=== PATIENT | female | born 1970 | race Caucasian/White ===

== ENCOUNTER 2016-08-21 05:13 | Emergency (ER) | payer OTHER ==
[~2016-08-21] VITALS: Ht 160 cm; Wt 67.6 kg
[~2016-08-21 05:13] MED LIST: ANTIVERT 25 MG25 MG PO; KETOROLAC TROME10 M1 PO
--- NOTE | 2016-08-21 05:31 | ED UPPER/LOWER EXTREMITY COMPL ---
History of Present Illness General Chief Complaint: Hand or Wrist Injury Stated Complaint: LT FOREARM INJ WHILE PULLING PT UP IN BED AT WORK Source: patient Exam Limitations: no limitations Vital Signs & Intake/Output Vital Signs & Intake/Output Vital Signs Date Time Temp Pulse Resp B/P Pulse O2 O2 Flow FiO2 Ox Delivery Rate 08/21 0626 96.5 08/21 0550 Room Air 08/21 0541 96.5 75 18 128/72 98 Room Air Allergies Coded Allergies: NO KNOWN ALLERGIES (11/14/12) Reconcile Medications Ibuprofen 600 MG TABLET 1 TAB PO TID PRN pain with food Triage Nurses Notes Reviewed? yes Onset: Abrupt Duration: hour(s): Timing: single episode today Severity: mild Pain/Injury Location: Left: Wrist. Method of Injury: "I was pulling a patient on one north." Modifying Factors: Improves With: rest. Worsens With: movement. Associated Symptoms: "Looks like its swollen on the wrist" HPI: 46 yo woman in prior good health, presents with left wrist pain after pulling a patient on the bed. She notes that she pulled a sheet and then felt pain in her left wrist, worse with movement. She is otherwise well. Past History Medical History Any Pertinent Medical History? see below for history Neurological: NONE EENT: NONE Cardiovascular: VERTIGO Respiratory: NONE Gastrointestinal: NONE Hepatic: NONE Renal: NONE Musculoskeletal: NONE Psychiatric: NONE Endocrine: NONE Blood Disorders: NONE Cancer(s): NONE Surgical History Surgical History: non-contributory Psychosocial History What is your primary language Cymro Family History Hx Contributory? No Review of Systems Review of Systems Constitutional: Reports: no symptoms. EENTM: Reports: no symptoms. Respiratory: Reports: no symptoms. Cardiovascular: Reports: no symptoms. Gastrointestinal/Abdominal: Reports: no symptoms. Genitourinary: Reports: no symptoms. Musculoskeletal: Reports: no symptoms. Skin: Reports: no symptoms. Neurological/Psychological: Reports: no symptoms. Hematologic/Endocrine: Reports: no symptoms. Immunological: Reports: no symptoms. All Other Systems: Reviewed and Negative Physical Exam Physical Exam General Appearance: well developed/nourished, mild distress Head: atraumatic Eyes: Bilateral: normal appearance. Ears, Nose, Throat: normal pharynx, normal ENT inspection, hearing grossly normal Neck: normal inspection, supple Cardiovascular/Respiratory: regular rate/rhythm Back: normal inspection Hand Left: no focal bony tenderness in hand or wrist. Pain elicited with passive extension of wrist and dequervain's maneuver. minimal swelling noted. Skin: intact, normal color, warm/dry Lymphatic: no anterior cervical ethel Progress Differential Diagnosis: contusion, sprain, tendon injury Plan of Care: Orders Procedure Date/time Status Durable Medical Equipment 08/21 613 Active Diagnostic Imaging: Viewed by Me: Radiology Read. Discussed w/RAD: Radiology Read. Radiology Impression: RIGHT WRIST... NEG.. FULL REPORT BELOW. Comments: PATIENT: KISHAN BUCKNER PRESENT AGE: 46 PATIENT ACCOUNT NO: [id number] : 66 LOCATION: [facility] ORDERING PHYSICIAN: DARLINE LINDO MD SERVICE DATE: 08/21/16 EXAM TYPE: RAD - XRY-WRIST COMPLETE-LEFT EXAMINATION: XR WRIST, LEFT CLINICAL INFORMATION: Pain status post boosting in patient. Rule out fracture. COMPARISON: 07/25/2009 TECHNIQUE: AP, lateral, scaphoid, and oblique views of the left wrist FINDINGS: No fracture or malalignment. Bone mineralization is normal. Joint spaces are well-preserved. Scaphoid bone is intact. Incidental note is made of a carpal boss. Soft tissues are unremarkable. IMPRESSION: No acute fracture or malalignment. DICTATED BY: MARY JO LENZ MD DATE/TIME DICTATED:08/21/16603 AERIAL SURVEY TECHNICIAN:GÓMEZ DATE/TIME TRANSCRIBED:08/21/16603 CONFIDENTIAL, DO NOT COPY WITHOUT APPROPRIATE AUTHORIZATION. <Electronically signed in Other Vendor System> SIGNED BY: MARY JO LENZ MD 08/21/16608 Departure Departure Disposition: HOME OR SELF CARE Condition: Stable Clinical Impression Primary Impression: Left wrist sprain Referrals: RONALDO PRETTY APRN (PCP/Family) Referred to [facility] as new patient No Departure Forms: Customer Survey General Discharge Information Prescriptions: Current Visit Scripts Ibuprofen 1 TAB PO TID PRN pain #30 TAB with food Comments splint placed on left wrist by RN.
[2016-08-21 05:41] VITALS: BP 128/72
--- NOTE | 2016-08-21 06:09 | RADIOLOGY REPORT ---
EXAMINATION: XR WRIST, LEFT CLINICAL INFORMATION: Pain status post boosting in patient. Rule out fracture. COMPARISON: 07/25/2009 TECHNIQUE: AP, lateral, scaphoid, and oblique views of the left wrist FINDINGS: No fracture or malalignment. Bone mineralization is normal. Joint spaces are well-preserved. Scaphoid bone is intact. Incidental note is made of a carpal boss. Soft tissues are unremarkable. IMPRESSION: No acute fracture or malalignment.
[2016-08-21] MEDS ORDERED: IBUPROFEN600 M1 PO (06:25)
== END 2016-08-21 06:27 ==
LOC: ERH 05:13
DX: S63.502A Unspecified sprain of left wrist, initial encounter (principal); X50.0XXA Overexertion from strenuous movement or load, initial encounter; Y93.F2 Activity, caregiving, lifting
CPT/HCPCS: 73110-LT